=== PATIENT | female | born 1935 | race Caucasian/White ===

== ENCOUNTER 2018-04-03 14:10 | Inpatient (IN) | payer MEDICARE, OTHER ==
[~2018-04-03] VITALS: Ht 167.6 cm; Wt 81.8 kg
[~2018-04-03 14:10] MED LIST: ATOR10TA87 PO; DOCU-261 PO; ESOM40CA PO; HYDR12.522 PO; LEVO500T2 PO; LISI-222 PO; NORCO10T PO; OMEG1CAP54 PO; RIVA10TA PO; SYN0.1T PO; WALKERFR
[2018-04-03 14:53] LABS: BASOPHILS % (AUTO) 0.5 % (0-1); EOSINOPHILS # (AUTO) 0.1 X10'3 (0-0.9); EOSINOPHILS % (AUTO) 2.3 % (0-6); HEMATOCRIT 31.2 % (35.0-45.0); HEMOGLOBIN 10.5 g/dl (12.0-16.0); LYMPHOCYTES # (AUTO) 0.5 X10'3 (1.1-4.8); LYMPHOCYTES % (AUTO) 8.4 % (21-51); MEAN CORPUSCULAR HEMOGLOBIN 30.5 PG (27.0-31.0); MEAN CORPUSCULAR HGB CONC 33.5 % (33.0-36.5); MEAN PLATELET VOLUME 7.9 FL (7.4-10.4); MONOCYTES # (AUTO) 0.3 X10'3 (0-0.9); MONOCYTES % (AUTO) 4.9 % (2-12); NEUTROPHILS # (AUTO) 5.5 X10'3 (1.8-7.7); NEUTROPHILS % (AUTO) 83.9 % (42-75); PLATELET COUNT 165 X10'3 (140-440); RED BLOOD COUNT 3.43 X10'6 (4.20-5.60); RED CELL DISTRIBUTION WIDTH 12.8 % (11.5-14.5); WHITE BLOOD COUNT 6.4 X10'3 (4.5-11.0)
[2018-04-03] MEDS ORDERED: ondansetron 4mg/5ml UD cup PO ONE (15:05)
[2018-04-03 15:08] LABS: PROTHROMBIN TIME 11.1 SECONDS (9.0-12.0)
[2018-04-03 15:09] LABS: INR 1.1 INR; PARTIAL THROMBOPLASTIN TIME 27 SECONDS (22-32)
[2018-04-03 15:15] LABS: ALANINE AMINOTRANSFERASE 394 U/L (12-78); ALBUMIN 2.8 G/DL (3.4-5.0); ALKALINE PHOSPHATASE 162 IU/L (46-116); ANION GAP 13 (8-16); ASPARTATE AMINO TRANSFERASE 374 U/L (10-37); BILIRUBIN,TOTAL 4.6 MG/DL (0.1-1.0); BLOOD UREA NITROGEN 22 MG/DL (7-18); BUN/CREATININE RATIO 18.2 (6.6-38.0); CALCIUM 8.5 MG/DL (8.5-10.1); CHLORIDE 102 MMOL/L (99-107); CREATININE 1.21 MG/DL (0.40-0.90); GLUCOSE 141 MG/DL (70-104); POTASSIUM 3.4 MMOL/L (3.5-5.1); SODIUM 137 MMOL/L (135-145); TOTAL CARBON DIOXIDE 22.4 MMOL/L (24-32); eGFR 42 ML/MIN
[2018-04-03 15:25] LABS: ALBUMIN/GLOBULIN RATIO 0.8 (1.1-1.5); TOTAL PROTEIN 6.2 G/DL (6.4-8.2)
[2018-04-03] MEDS ORDERED: normal saline 1000ML IV soln IVB ONE (15:40)
[2018-04-03 16:39] LABS: CLARITY,URINE CLEAR (Clear); COLOR,URINE YELLOW (Yellow); GLUCOSE, URINE NEGATIVE (Neg); KETONES,URINE TRACE mg/dl (Neg); LEUKOCYTE ESTERASE ,URINE NEGATIVE (Neg); NITRITES, URINE NEGATIVE (Neg); OCCULT BLOOD,URINE TRACE-INTACT (Neg); PROTEIN,URINE TRACE mg/dl (Neg)
[2018-04-03 16:41] LABS: UA COLLECTION TYPE STRAIGHT CATH
[2018-04-03 16:51] LABS: BACTERIA,URINE NONE SEEN /HPF (Neg); MUCUS STRANDS FEW /LPF (Neg); RBC,URINE 0-2 /HPF (0-2); SQUAMOUS EPITHELIAL CELL,UR FEW /LPF (FEW); WBC,URINE 0-4 /HPF (0-4)
[2018-04-03 17:00] LABS: ETHANOL < 0.010 GM/DL (0.0-0.010); MAGNESIUM 1.9 MG/DL (1.5-2.4)
[2018-04-03] MEDS ORDERED: piperacillin/tazo 3.375gm/50ml 50 ML IV ONE (17:25)
[2018-04-03] MEDS ORDERED: normal saline 1000ML IV soln IV ONE (17:30)
[2018-04-03] MEDS: diatr meglu/diatrizoate 30ml oral sol.-(3 dose) bottle PO SCH ×2 (17:30→18:00)
[2018-04-03 17:47] LABS: LIPASE > 30000 U/L (73-393)
[2018-04-03 17:53] LABS: AMYLASE 2229 U/L (25-115)
[2018-04-03] MEDS ORDERED: iohexol 300mg/ml 100ml inj. ONE (18:00)
[2018-04-03] MEDS ORDERED: meperidine/PF 25mg/ml syringe IV ONE (18:25)
[2018-04-03] MEDS: normal saline 1000ml 1,000 ML IV SCH (20:32)
[2018-04-03] MEDS ORDERED: magnesium hydroxide 30ml (MOM) UD suspension PO PRN (20:35)
[2018-04-03] MEDS ORDERED: mag hydrox/Alum hydrox/simeth 30ml oral suspension PO PRN (20:35)
[2018-04-03] MEDS ORDERED: ondansetron/PF 4mg/2ml inj IV PRN (20:35)
[2018-04-03] MEDS ORDERED: acetaminophen 325mg tablet PO PRN ×2 (20:35)
[2018-04-03] MEDS ORDERED: HYDROcodone/acetaminophen 5mg/325mg tablet PO PRN (20:35)
[2018-04-03] MEDS ORDERED: potassium Cl 20 mEq SR tablet PO PRN ×2 (20:35)
[2018-04-03] MEDS ORDERED: morphine 4 MG/ML inj SYRINge IV PRN ×2 (20:35)
[2018-04-03] MEDS ORDERED: potassium Cl 40MEQ/NS 500ml 500 ML IV PRN ×2 (20:35)
[2018-04-03] MEDS ORDERED: SYN0.088T PO (20:44)
[2018-04-03] MEDS ORDERED: PANT40TA4 PO (20:44)
[2018-04-03] MEDS ORDERED: ASPI-611 PO (20:44)
[2018-04-03] MEDS ORDERED: temazepam 15mg capsule PO PRN (21:00)
[2018-04-04] MEDS: K and/or MAG REPLACEMENT MC SCH (08:00)
[2018-04-04] MEDS ORDERED: MIDAZolam 5mg/5ml vial ONE (08:09)
[2018-04-04] MEDS ORDERED: fentaNYL/PF 50MCG/1 ML 2ML syringe ONE (08:09)
[2018-04-04] MEDS ORDERED: glucagon, human recombinant 1mg kit ONE ×2 (08:10)
[2018-04-04] MEDS ORDERED: LIDOcaine Viscous 15ml cup ONE (08:10)
[2018-04-04] MEDS ORDERED: iohexol 300 MG/1 ML 50ml polymer ONE (08:10)
[2018-04-04] MEDS ORDERED: diphenhydrAMINE 50 mg/ml inj ONE (08:10)
[2018-04-04 08:29] LABS: BASOPHILS % (AUTO) 0.3 % (0-1); EOSINOPHILS # (AUTO) 0.1 X10'3 (0-0.9); EOSINOPHILS % (AUTO) 0.9 % (0-6); HEMATOCRIT 27.4 % (35.0-45.0); HEMOGLOBIN 9.3 g/dl (12.0-16.0); LYMPHOCYTES # (AUTO) 0.9 X10'3 (1.1-4.8); LYMPHOCYTES % (AUTO) 9.4 % (21-51); MEAN CORPUSCULAR HEMOGLOBIN 31.2 PG (27.0-31.0); MEAN CORPUSCULAR VOLUME 91.7 FL (78-98); MONOCYTES # (AUTO) 0.8 X10'3 (0-0.9); MONOCYTES % (AUTO) 8.7 % (2-12); NEUTROPHILS # (AUTO) 7.9 X10'3 (1.8-7.7); NEUTROPHILS % (AUTO) 80.7 % (42-75); PLATELET COUNT 143 X10'3 (140-440); RED BLOOD COUNT 2.98 X10'6 (4.20-5.60); RED CELL DISTRIBUTION WIDTH 12.8 % (11.5-14.5); WHITE BLOOD COUNT 9.7 X10'3 (4.5-11.0)
[2018-04-04 08:33] LABS: ALANINE AMINOTRANSFERASE 296 U/L (12-78); ALBUMIN 2.2 G/DL (3.4-5.0); ALKALINE PHOSPHATASE 127 IU/L (46-116); ANION GAP 10 (8-16); ASPARTATE AMINO TRANSFERASE 267 U/L (10-37); BILIRUBIN,TOTAL 5.1 MG/DL (0.1-1.0); BLOOD UREA NITROGEN 18 MG/DL (7-18); BUN/CREATININE RATIO 15.7 (6.6-38.0); CALCIUM 7.5 MG/DL (8.5-10.1); CHLORIDE 108 MMOL/L (99-107); CREATININE 1.15 MG/DL (0.40-0.90); GLUCOSE 92 MG/DL (70-104); HDL CHOLESTEROL 23 MG/DL (35-60); LDL CHOLESTEROL 38 MG/DL (50-100); POTASSIUM 3.3 MMOL/L (3.5-5.1); SODIUM 140 MMOL/L (135-145); TOTAL CARBON DIOXIDE 21.6 MMOL/L (24-32); eGFR 45 ML/MIN
[2018-04-04 08:34] LABS: ALBUMIN/GLOBULIN RATIO 0.7 (1.1-1.5); CHOL/HDL RATIO 2.7 (0.00-4.99); CHOLESTEROL 61 MG/DL (0-200); TOTAL PROTEIN 5.2 G/DL (6.4-8.2); TRIGLYCERIDES 48 MG/DL (20-135)
[2018-04-04 08:40] VITALS: BP 139/63
[2018-04-04] MEDS: piperacillin/tazo 4.5gm/100ml 100 ML IV SCH ×4 (08:41→23:58)
[2018-04-04 10:08] LABS: LIPASE 14644 U/L (73-393)
[2018-04-04] MEDS: normal saline 1000ml 1,000 ML IV SCH ×3 (13:47→21:38)
--- NOTE | 2018-04-04 13:58 | NUR ---
called lab and had them add on a Mag level from the bloodwork this AM
[2018-04-04 18:00] VITALS: BP 159/68
--- NOTE | 2018-04-04 20:00 | NUR ---
Patient in room PCU 3017. I have received report from Natasha Palmer in the Er and had the opportunity to ask questions and will assume patient care upon arrival to the floor. Addendum: 04/04/18 at 2113 by Felecia Marrero RN Amended: Links added.
[2018-04-04 21:00] VITALS: BP 159/68
--- NOTE | 2018-04-04 21:00 | NUR ---
pt arrived to the floor and transferred into bed. tolerated well. vitals done and stable. denies complaints of pain.
[2018-04-04 22:30] VITALS: BP 169/77
--- NOTE | 2018-04-04 22:57 | NUR ---
pt resting eyes closed without s&s of distress at this time.
--- NOTE | 2018-04-04 23:25 | NUR ---
awoke up with assistance ambulate to brp with walker
--- NOTE | 2018-04-05 00:48 | NUR ---
awake no changes or s&s of distress.
[2018-04-05 02:00] VITALS: BP 165/67
--- NOTE | 2018-04-05 02:15 | NUR ---
gi lab up to put up order for lipase draw this Am and to check on pt.
--- NOTE | 2018-04-05 04:00 | NUR ---
resting eyes closed without s&s of distress at this time.
[2018-04-05 06:00] VITALS: BP 144/67
--- NOTE | 2018-04-05 06:37 | NUR ---
Problems reprioritized. Patient report given, questions answered & plan of care reviewed with Sally Torres. Addendum: 04/05/18 at 0637 by Felecia Marrero RN Amended: Links added.
[2018-04-05 06:58] LABS: BASOPHILS % (AUTO) 0.6 % (0-1); EOSINOPHILS # (AUTO) 0.2 X10'3 (0-0.9); EOSINOPHILS % (AUTO) 2.5 % (0-6); HEMATOCRIT 28.6 % (35.0-45.0); HEMOGLOBIN 9.5 g/dl (12.0-16.0); LYMPHOCYTES % (AUTO) 14.1 % (21-51); MEAN CORPUSCULAR HEMOGLOBIN 30.4 PG (27.0-31.0); MEAN CORPUSCULAR HGB CONC 33.2 % (33.0-36.5); MEAN CORPUSCULAR VOLUME 91.7 FL (78-98); MEAN PLATELET VOLUME 8.4 FL (7.4-10.4); MONOCYTES # (AUTO) 0.6 X10'3 (0-0.9); MONOCYTES % (AUTO) 8.5 % (2-12); NEUTROPHILS # (AUTO) 5.2 X10'3 (1.8-7.7); NEUTROPHILS % (AUTO) 74.3 % (42-75); PLATELET COUNT 146 X10'3 (140-440); RED BLOOD COUNT 3.12 X10'6 (4.20-5.60); RED CELL DISTRIBUTION WIDTH 12.9 % (11.5-14.5)
[2018-04-05 07:10] LABS: ALANINE AMINOTRANSFERASE 250 U/L (12-78); ALBUMIN 2.3 G/DL (3.4-5.0); ALBUMIN/GLOBULIN RATIO 0.7 (1.1-1.5); ALKALINE PHOSPHATASE 124 IU/L (46-116); ANION GAP 12 (8-16); ASPARTATE AMINO TRANSFERASE 180 U/L (10-37); BILIRUBIN,TOTAL 2.8 MG/DL (0.1-1.0); BLOOD UREA NITROGEN 14 MG/DL (7-18); BUN/CREATININE RATIO 12.7 (6.6-38.0); CALCIUM 7.9 MG/DL (8.5-10.1); CHLORIDE 108 MMOL/L (99-107); GLUCOSE 76 MG/DL (70-104); POTASSIUM 3.5 MMOL/L (3.5-5.1); SODIUM 139 MMOL/L (135-145); TOTAL CARBON DIOXIDE 18.6 MMOL/L (24-32); TOTAL PROTEIN 5.5 G/DL (6.4-8.2); eGFR 47 ML/MIN
[2018-04-05 07:31] LABS: LIPASE 22287 U/L (73-393)
[2018-04-05] MEDS: piperacillin/tazo 4.5gm/100ml 100 ML IV SCH ×3 (07:35→23:12)
[2018-04-05] MEDS: K and/or MAG REPLACEMENT MC SCH (08:00)
[2018-04-05] MEDS: normal saline 1000ml 1,000 ML IV SCH (10:06)
[2018-04-05 11:00] VITALS: BP 169/63
[2018-04-05] MEDS: Potassium Cl inj 20 MEQ in dextrose 5%-water 990 ML IV SCH ×2 (14:39→23:16)
[2018-04-05 15:00] VITALS: BP 178/75
--- NOTE | 2018-04-05 15:43 | NUR ---
Consult re: pancreatitis. Per MD notes pt with gallstone pancreatitis pending MRCP and potential cholecystectomy once pancreas less inflamed. Pt seen at bedside given written and verbal pancreatitis nutrition therapy ed with RD contact information. Pt with no questions at this time, will remain available. Darlene consult: Pt seen at bedside states she hasn't had any wt loss that shes concerned about. Pt states UBW 170# which is current documented wt. 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 No visible fat/muscle wasting noted during RD visit. No documented decrease in muscle strength. Pt currently does not meet criteria for malnutrition. Will continue to follow. Addendum: 04/05/18 at [address] Amended: Links added.
--- NOTE | 2018-04-05 15:59 | NUR ---
Spoke with about patient elevated blood pressure. The decision was to monitor the blood pressure for now due to the patient condition. Patient is asymptomatic.
[2018-04-05 18:00] VITALS: BP 169/64
--- NOTE | 2018-04-05 18:17 | NUR ---
Problems reprioritized. Patient report given, questions answered & plan of care reviewed with Namrata FLORES.
--- NOTE | 2018-04-05 18:35 | NUR ---
Patient in room PCU 3017. I have received report from Sally FLORES and had the opportunity to ask questions and assume patient care.
[2018-04-05 22:00] VITALS: BP 165/104
[2018-04-06] VITALS (14 sets, daily range): BP systolic 128–177; BP diastolic 53–82
[2018-04-06] MEDS: Potassium Cl inj 20 MEQ in dextrose 5%-water 990 ML IV SCH ×2 (04:59→21:04)
[2018-04-06 06:07] LABS: BASOPHILS # (AUTO) 0.1 X10'3 (0-0.2); BASOPHILS % (AUTO) 0.9 % (0-1); EOSINOPHILS # (AUTO) 0.2 X10'3 (0-0.9); EOSINOPHILS % (AUTO) 3.5 % (0-6); HEMATOCRIT 29.7 % (35.0-45.0); HEMOGLOBIN 9.9 g/dl (12.0-16.0); LYMPHOCYTES # (AUTO) 1.5 X10'3 (1.1-4.8); MEAN CORPUSCULAR HEMOGLOBIN 30.5 PG (27.0-31.0); MEAN CORPUSCULAR HGB CONC 33.5 % (33.0-36.5); MEAN CORPUSCULAR VOLUME 91.1 FL (78-98); MEAN PLATELET VOLUME 8.3 FL (7.4-10.4); MONOCYTES # (AUTO) 0.6 X10'3 (0-0.9); MONOCYTES % (AUTO) 8.8 % (2-12); NEUTROPHILS # (AUTO) 4.5 X10'3 (1.8-7.7); NEUTROPHILS % (AUTO) 65.8 % (42-75); PLATELET COUNT 180 X10'3 (140-440); RED BLOOD COUNT 3.26 X10'6 (4.20-5.60); RED CELL DISTRIBUTION WIDTH 12.6 % (11.5-14.5); WHITE BLOOD COUNT 6.9 X10'3 (4.5-11.0)
[2018-04-06 06:12] LABS: ALANINE AMINOTRANSFERASE 207 U/L (12-78); ALBUMIN 2.3 G/DL (3.4-5.0); ALBUMIN/GLOBULIN RATIO 0.6 (1.1-1.5); ALKALINE PHOSPHATASE 120 IU/L (46-116); ANION GAP 10 (8-16); ASPARTATE AMINO TRANSFERASE 110 U/L (10-37); BILIRUBIN,TOTAL 1.9 MG/DL (0.1-1.0); BLOOD UREA NITROGEN 8 MG/DL (7-18); BUN/CREATININE RATIO 6.8 (6.6-38.0); CALCIUM 8.3 MG/DL (8.5-10.1); CHLORIDE 107 MMOL/L (99-107); CREATININE 1.18 MG/DL (0.40-0.90); GLUCOSE 94 MG/DL (70-104); POTASSIUM 3.4 MMOL/L (3.5-5.1); SODIUM 139 MMOL/L (135-145); TOTAL CARBON DIOXIDE 22.3 MMOL/L (24-32); TOTAL PROTEIN 5.9 G/DL (6.4-8.2); eGFR 44 ML/MIN
--- NOTE | 2018-04-06 06:30 | NUR ---
Problems reprioritized. Patient report given, questions answered & plan of care reviewed with Regla FLORES.
--- NOTE | 2018-04-06 06:44 | NUR ---
Patient in room PCU 3017. I have received report from Namrata FLORES and had the opportunity to ask questions and assume patient care.
[2018-04-06] MEDS: piperacillin/tazo 4.5gm/100ml 100 ML IV SCH (07:12)
[2018-04-06] MEDS: levoTHYROXINE 88mcg tablet PO SCH (07:12)
[2018-04-06] MEDS: docusate sod 100mg capsule PO SCH (07:12)
[2018-04-06] MEDS: aspirin 81mg tablet.DR PO SCH (07:12)
[2018-04-06] MEDS ORDERED: non-formulary drug (Aspirin (Aspir 81) 1 TAB) PO SCH (08:00)
[2018-04-06] MEDS ORDERED: pantoprazole 40mg Tablet.DR PO SCH (08:00)
[2018-04-06] MEDS: K and/or MAG REPLACEMENT MC SCH (08:25)
--- NOTE | 2018-04-06 10:09 | NUR ---
Order from Dr. Sandra to give K 40meq PO NOW to replace 3.4 K level today. Patient will be NPO for ERCP. Dr. Coelho will consult for surgery.
[2018-04-06 10:47] LABS: LIPASE 13436 U/L (73-393)
[2018-04-06] MEDS ORDERED: simethicone 40mg/0.6ml oral drops 30ml MC ONE (13:50)
[2018-04-06] MEDS ORDERED: glucagon, human recombinant 1mg kit IV PRN (13:50)
[2018-04-06] MEDS ORDERED: MIDAZolam 5mg/5ml vial IV PRN (13:50)
[2018-04-06] MEDS ORDERED: normal saline 1000ml 1,000 ML IV SCH (13:50)
[2018-04-06] MEDS ORDERED: iohexol 300 MG/1 ML 50ml polymer IV ONE (13:50)
[2018-04-06] MEDS ORDERED: diphenhydrAMINE 50 mg/ml inj IV ONE (13:50)
[2018-04-06] MEDS ORDERED: LIDOcaine Viscous 15ml cup PO ONE (13:50)
[2018-04-06] MEDS ORDERED: fentaNYL/PF 50MCG/1 ML 2ML syringe IV PRN (13:50)
[2018-04-06] MEDS: piperacillin/tazobactam inj. 2.25 GM in normal saline 50ml IV IV SCH ×2 (14:42→21:04)
[2018-04-06] MEDS ORDERED: epiNEPHrine 0.1mg/ml 10ml syringe ONE (16:09)
[2018-04-06] MEDS ORDERED: MIDAZolam 5mg/5ml vial ONE ×2 (16:15→16:17)
[2018-04-06] MEDS ORDERED: diphenhydrAMINE 50 mg/ml inj ONE (16:15)
[2018-04-06] MEDS ORDERED: fentaNYL/PF 50MCG/1 ML 2ML syringe ONE ×2 (16:15)
[2018-04-06] MEDS ORDERED: glucagon, human recombinant 1mg kit ONE ×2 (16:16)
[2018-04-06] MEDS ORDERED: LIDOcaine Viscous 15ml cup ONE (16:16)
[2018-04-06] MEDS ORDERED: iohexol 300 MG/1 ML 50ml polymer ONE (16:16)
--- NOTE | 2018-04-06 16:20 | NUR ---
Patient off the unit to the GI Lab for ERCP, no IV, unable to obtain one.
[2018-04-06] MEDS: lactobacillus rhamnosus 10,000 MMU CELLS/CAPSULE PO SCH (21:04)
[2018-04-06] MEDS: pantoprazole 40 MG vial IV SCH (21:04)
[2018-04-07] VITALS (20 sets, daily range): BP systolic 109–188; BP diastolic 51–90
[2018-04-07] MEDS: piperacillin/tazobactam inj. 2.25 GM in normal saline 50ml IV IV SCH ×4 (02:00→20:08)
[2018-04-07] MEDS: Potassium Cl inj 20 MEQ in dextrose 5%-water 990 ML IV SCH ×3 (05:45→22:00)
[2018-04-07 06:03] LABS: BASOPHILS % (AUTO) 0.8 % (0-1); EOSINOPHILS # (AUTO) 0.2 X10'3 (0-0.9); EOSINOPHILS % (AUTO) 4.4 % (0-6); HEMATOCRIT 26.7 % (35.0-45.0); HEMOGLOBIN 9.1 g/dl (12.0-16.0); LYMPHOCYTES # (AUTO) 1.2 X10'3 (1.1-4.8); LYMPHOCYTES % (AUTO) 22.5 % (21-51); MEAN CORPUSCULAR HGB CONC 34.1 % (33.0-36.5); MEAN CORPUSCULAR VOLUME 90.9 FL (78-98); MONOCYTES # (AUTO) 0.5 X10'3 (0-0.9); MONOCYTES % (AUTO) 9.9 % (2-12); NEUTROPHILS # (AUTO) 3.5 X10'3 (1.8-7.7); NEUTROPHILS % (AUTO) 62.4 % (42-75); PLATELET COUNT 169 X10'3 (140-440); RED BLOOD COUNT 2.94 X10'6 (4.20-5.60); RED CELL DISTRIBUTION WIDTH 12.5 % (11.5-14.5); WHITE BLOOD COUNT 5.4 X10'3 (4.5-11.0)
--- NOTE | 2018-04-07 06:15 | NUR ---
Patient in room PCU 3017. I have received report from Jas FLORES and had the opportunity to ask questions and assume patient care.
[2018-04-07 06:20] LABS: ALANINE AMINOTRANSFERASE 144 U/L (12-78); ALBUMIN/GLOBULIN RATIO 0.6 (1.1-1.5); ALKALINE PHOSPHATASE 99 IU/L (46-116); ANION GAP 9 (8-16); ASPARTATE AMINO TRANSFERASE 70 U/L (10-37); BILIRUBIN,TOTAL 1.5 MG/DL (0.1-1.0); BLOOD UREA NITROGEN 6 MG/DL (7-18); CALCIUM 8.1 MG/DL (8.5-10.1); CHLORIDE 108 MMOL/L (99-107); GLUCOSE 109 MG/DL (70-104); POTASSIUM 4.1 MMOL/L (3.5-5.1); SODIUM 139 MMOL/L (135-145); TOTAL CARBON DIOXIDE 21.8 MMOL/L (24-32); TOTAL PROTEIN 5.2 G/DL (6.4-8.2); eGFR 53 ML/MIN
--- NOTE | 2018-04-07 06:37 | NUR ---
Problems reprioritized. Patient report given, questions answered & plan of care reviewed with ZENIA. Addendum: 04/07/18 at 0637 by Mayur Coleman RN Amended: Links added.
[2018-04-07] MEDS: K and/or MAG REPLACEMENT MC SCH (08:00)
[2018-04-07] MEDS: docusate sod 100mg capsule PO SCH (08:58)
[2018-04-07] MEDS: levoTHYROXINE 88mcg tablet PO SCH (08:58)
[2018-04-07] MEDS: lactobacillus rhamnosus 10,000 MMU CELLS/CAPSULE PO SCH ×2 (08:58→20:08)
[2018-04-07] MEDS: pantoprazole 40 MG vial IV SCH ×2 (08:59→20:08)
[2018-04-07] MEDS: aspirin 81mg tablet.DR PO SCH (08:59)
[2018-04-07] MEDS ORDERED: BUPIVAcaine/PF 2.5mg/ml (0.25%) 10ml vial ONE (14:26)
[2018-04-07] MEDS ORDERED: LIDOcaine 1% 30ml preserv. free vial ONE (14:26)
[2018-04-07] MEDS ORDERED: sevoflurane 250ml liquid IH ONE (15:18)
[2018-04-07] MEDS ORDERED: rocuronium 10mg/ml inj IV ONE (15:27)
[2018-04-07] MEDS ORDERED: fentaNYL/PF 50MCG/1 ML 2ML syringe ONE (15:27)
[2018-04-07] MEDS ORDERED: propofol inj 20 ML IV ONE (15:27)
--- NOTE | 2018-04-07 16:03 | NUR ---
Problems reprioritized. Patient report given, questions answered & plan of care reviewed with Vero FLORES.
--- NOTE | 2018-04-07 16:06 | NUR ---
Patient in room PCU 3017. I have received report from Vipin FLORES and had the opportunity to ask questions and assume patient care.
[2018-04-07] MEDS ORDERED: glycopyrrolate 0.2mg/ml inj ONE (16:34)
[2018-04-07] MEDS ORDERED: neostigmine methylsulfate 1 MG/ML 10ml vial ONE (16:34)
[2018-04-07] MEDS ORDERED: HYDROcodone/acetaminophen 5mg/325mg tablet PO PRN (16:45)
[2018-04-07] MEDS ORDERED: morphine 2 MG/ML inj. syringe IV PRN (16:45)
--- NOTE | 2018-04-07 16:50 | NUR ---
Received from OR via BED, accompanied by Anesthesiologist DR SANTANA and report given by Anesthesiolgist. PT DROWSY, DENIES PAIN, 4 LAP SITES W/BANDAIDS TO ABDOMEN CDI. Addendum: 04/07/18 at 1705 by Leyla Ingram RN Amended: Links added.
[2018-04-07] MEDS ORDERED: ringers solution, lacted 1,000 ML IV SCH (17:03)
[2018-04-07] MEDS ORDERED: ondansetron/PF 4mg/2ml inj IV PRN (17:05)
[2018-04-07] MEDS ORDERED: meperidine/PF 25mg/ml syringe IV PRN ×3 (17:05)
[2018-04-07] MEDS ORDERED: labetalol 20mg/4ml (5mg/ml) syringe IV PRN (17:05)
[2018-04-07] MEDS ORDERED: morphine 4 MG/ML inj SYRINge IV PRN ×3 (17:05→19:50)
[2018-04-07] MEDS ORDERED: proCHLORperazine 10 MG/2 ml inj IV PRN (17:05)
--- NOTE | 2018-04-07 17:56 | NUR ---
Received report from Leyla . patient is still in the recovery room at time of report.
--- NOTE | 2018-04-07 18:00 | NUR ---
Report called to receiving nurse. Transferred via BED, NO Belongings, PT SLEEPY BUT ANSWERS QUESTIONS APPROPRIATELY, PAIN IMPROVED, NAUSEA SUBSIDED, PT STABLE TO ROOM 345B, RECEIVING RN AT BEDSIDE TO RECEIVE PT, PT ATTACHED TO VS MACHINE, BLL, CALL LIGHT GIVEN, SIDE RAILS UP X2, PTS AT BEDSIDE. Special Issues communicated to receiving nurse. YES. Addendum: 04/07/18 at 1823 by Leyla Ingram RN Amended: Links added.
--- NOTE | 2018-04-07 18:25 | NUR ---
Problems reprioritized. Patient report given, questions answered & plan of care reviewed with jaron mcclelland.
[2018-04-08] VITALS: BP 143/75
[2018-04-08 00:42] VITALS: BP 144/65
[2018-04-08] MEDS: Potassium Cl inj 20 MEQ in dextrose 5%-water 990 ML IV SCH ×2 (01:25→10:53)
[2018-04-08] MEDS: piperacillin/tazobactam inj. 2.25 GM in normal saline 50ml IV IV SCH ×4 (02:13→20:44)
[2018-04-08 05:07] LABS: BASOPHILS % (AUTO) 0.3 % (0-1); EOSINOPHILS # (AUTO) 0.2 X10'3 (0-0.9); EOSINOPHILS % (AUTO) 1.7 % (0-6); HEMATOCRIT 23.9 % (35.0-45.0); HEMOGLOBIN 8.1 g/dl (12.0-16.0); LYMPHOCYTES # (AUTO) 0.7 X10'3 (1.1-4.8); LYMPHOCYTES % (AUTO) 7.4 % (21-51); MEAN CORPUSCULAR HEMOGLOBIN 30.6 PG (27.0-31.0); MEAN CORPUSCULAR VOLUME 90.1 FL (78-98); MEAN PLATELET VOLUME 7.4 FL (7.4-10.4); MONOCYTES # (AUTO) 0.5 X10'3 (0-0.9); MONOCYTES % (AUTO) 5.6 % (2-12); NEUTROPHILS # (AUTO) 7.9 X10'3 (1.8-7.7); PLATELET COUNT 185 X10'3 (140-440); RED BLOOD COUNT 2.65 X10'6 (4.20-5.60); RED CELL DISTRIBUTION WIDTH 13.6 % (11.5-14.5); WHITE BLOOD COUNT 9.3 X10'3 (4.5-11.0)
[2018-04-08 05:36] LABS: ALANINE AMINOTRANSFERASE 123 U/L (12-78); ALBUMIN 1.9 G/DL (3.4-5.0); ALBUMIN/GLOBULIN RATIO 0.6 (1.1-1.5); ALKALINE PHOSPHATASE 85 IU/L (46-116); ANION GAP 6 (8-16); ASPARTATE AMINO TRANSFERASE 68 U/L (10-37); BILIRUBIN,TOTAL 1.4 MG/DL (0.1-1.0); BLOOD UREA NITROGEN 6 MG/DL (7-18); BUN/CREATININE RATIO 5.8 (6.6-38.0); CALCIUM 7.6 MG/DL (8.5-10.1); CHLORIDE 103 MMOL/L (99-107); CREATININE 1.03 MG/DL (0.40-0.90); GLUCOSE 152 MG/DL (70-104); POTASSIUM 4.6 MMOL/L (3.5-5.1); SODIUM 133 MMOL/L (135-145); TOTAL CARBON DIOXIDE 24.3 MMOL/L (24-32); TOTAL PROTEIN 4.9 G/DL (6.4-8.2); eGFR 51 ML/MIN
--- NOTE | 2018-04-08 06:26 | NUR ---
Patient in room [facility] 345. I have received report from OMAR mcclelland and had the opportunity to ask questions and assume patient care.
--- NOTE | 2018-04-08 06:26 | NUR ---
Problems reprioritized. Patient report given, questions answered & plan of care reviewed with SHANICE. Addendum: 04/08/18 at 0626 by Mayur Coleman RN Amended: Links added.
[2018-04-08 07:26] VITALS: BP 141/60
[2018-04-08] MEDS: lactobacillus rhamnosus 10,000 MMU CELLS/CAPSULE PO SCH ×2 (07:35→20:44)
[2018-04-08] MEDS: pantoprazole 40 MG vial IV SCH ×2 (07:35→20:44)
[2018-04-08] MEDS: aspirin 81mg tablet.DR PO SCH (07:35)
[2018-04-08] MEDS: docusate sod 100mg capsule PO SCH (07:36)
[2018-04-08] MEDS: levoTHYROXINE 88mcg tablet PO SCH (07:36)
[2018-04-08] MEDS: K and/or MAG REPLACEMENT MC SCH (07:47)
[2018-04-08] MEDS: HYDROcodone/acetaminophen 10/325mg tab PO PRN ×2 (10:57→17:49)
[2018-04-08 11:00] VITALS: BP 133/76
--- NOTE | 2018-04-08 11:30 | NUR ---
patient was found by RN Jayce down on the floor. patient had put light on but tried to get back to her bed by herself. VSS. Two slight reddened area on back patient had been c/o pain in right shoulder which now she states is worse. call made to DR reyes with regards patient awaiting call back.
--- NOTE | 2018-04-08 13:41 | NUR ---
patient seen by DR Londono xray of right shoulder ordered and PT eval. will continue to monitor.
--- NOTE | 2018-04-08 13:51 | NUR ---
Initial: Pt admit with acute cholecystitis, gallstone pancreatitis, and choledocholithiasis. Pt now s/p laparoscopic cholecystectomy. Diet has been advanced to full liquid with good PO intake first meal. LBM 04/02, routine Colace recently added to med list. Will continue to follow and monitor need for ONS and additional bowel care. Recommendations: 1) Advance to heart healthy diet as medically indicated 2) Monitor need for ONS 3) Monitor need for additional bowel care 4) Wt per rx Addendum: 04/08/18 at [address] Amended: Links added.
--- NOTE | 2018-04-08 17:33 | NUR ---
patient appears more weak needed assistance of two people to get back to bed, will continue to monitor. VSS
[2018-04-08 18:00] VITALS: BP 111/47
--- NOTE | 2018-04-08 18:30 | NUR ---
Patient in room [facility] 345. I have received report from Vero FLORES and had the opportunity to ask questions and assume patient care.
--- NOTE | 2018-04-08 18:39 | NUR ---
Problems reprioritized. Patient report given, questions answered & plan of care reviewed with jude FLORES.
--- NOTE | 2018-04-08 18:48 | NUR ---
Problems reprioritized. Patient report given, questions answered & plan of care reviewed with jude FLORES.
--- NOTE | 2018-04-08 20:00 | NUR ---
spoke with dr rodriguez says it is okay with him if patient is discharged today if okay with hospitalist.
[2018-04-09] VITALS: BP 155/69
--- NOTE | 2018-04-09 06:10 | NUR ---
Patient in room [facility] 345. I have received report from Namrata FLORES and had the opportunity to ask questions and assume patient care. Patient in bed sleeping on her back. Tabs alarm connected
--- NOTE | 2018-04-09 06:24 | NUR ---
Problems reprioritized. Patient report given, questions answered & plan of care reviewed with Jackie FLORES.
[2018-04-09 07:30] VITALS: BP 159/74
[2018-04-09] MEDS: K and/or MAG REPLACEMENT MC SCH (08:00)
[2018-04-09] MEDS: lactobacillus rhamnosus 10,000 MMU CELLS/CAPSULE PO SCH ×2 (08:53→19:16)
[2018-04-09] MEDS: aspirin 81mg tablet.DR PO SCH (08:53)
[2018-04-09] MEDS: levoTHYROXINE 88mcg tablet PO SCH (08:53)
[2018-04-09] MEDS: docusate sod 100mg capsule PO SCH (08:53)
[2018-04-09 11:00] VITALS: BP 159/66
[2018-04-09 11:15] VITALS: BP 159/66
[2018-04-09 18:00] VITALS: BP 158/68
--- NOTE | 2018-04-09 18:10 | NUR ---
Problems reprioritized. Patient report given, Namrata FLORES questions answered & plan of care reviewed with . Patient in bed, tabs alarm on
--- NOTE | 2018-04-09 18:30 | NUR ---
Patient in room [facility] 345. I have received report from Jackie FLORES and had the opportunity to ask questions and assume patient care. Pt sitting up eating dinner, comfortable and in no distress.
[2018-04-10] VITALS: BP 158/73
--- NOTE | 2018-04-10 06:07 | NUR ---
Problems reprioritized. Patient report given, questions answered & plan of care reviewed with Macie FLORES.
--- NOTE | 2018-04-10 06:09 | NUR ---
Patient in room [facility] 345. I have received report from Namrata FLORES and had the opportunity to ask questions and assume patient care.
[2018-04-10 07:00] VITALS: BP 168/80
[2018-04-10] MEDS: K and/or MAG REPLACEMENT MC SCH (08:00)
[2018-04-10] MEDS: docusate sod 100mg capsule PO SCH (08:34)
[2018-04-10] MEDS: aspirin 81mg tablet.DR PO SCH (08:35)
[2018-04-10] MEDS: levoTHYROXINE 88mcg tablet PO SCH (08:35)
[2018-04-10] MEDS: lactobacillus rhamnosus 10,000 MMU CELLS/CAPSULE PO SCH (08:35)
[2018-04-10 12:00] VITALS: BP 163/76
--- NOTE | 2018-04-10 13:00 | NUR ---
Discharged patient home accompanied by her . Peripheral catheter discontinued, tip intact. Discharge instructions given to patient and her present at bedside. Spoke to the Medicare Specialist Ana, she stated that Dr. Gustafson (patient's PCP) cannot follow a patient on home health service. Belongings sent with the patient.
== END 2018-04-10 13:06 | disposition home health service (06) | DRG 417 ==
LOC: ER 14:11 → ED HOLD 20:32 → PCU 3S 04-04 20:33 → SUR 3N 04-07 17:59
PROVIDERS: ADMIT Hospitalist; ATTEND Internal Medicine
PROC: 0FC98ZZ Extirpation of Matter from Common Bile Duct, Via Natural or Artificial Opening Endoscopic (ICD-10-PCS; principal; 2018-04-06)
PROC: BF141ZZ Fluoroscopy of Gallbladder, Bile Ducts and Pancreatic Ducts using Low Osmolar Contrast (ICD-10-PCS; 2018-04-06)
PROC: 0FT44ZZ Resection of Gallbladder, Percutaneous Endoscopic Approach (ICD-10-PCS; 2018-04-07)
DX: K80.66 Calculus of gallbladder and bile duct with acute and chronic cholecystitis without obstruction (principal); I21.A1 Myocardial infarction type 2; K85.10 Biliary acute pancreatitis without necrosis or infection; E43 Unspecified severe protein-calorie malnutrition; N17.9 Acute kidney failure, unspecified; E87.1 Hypo-osmolality and hyponatremia; E87.6 Hypokalemia; G31.84 Mild cognitive impairment of uncertain or unknown etiology; E86.0 Dehydration; D64.9 Anemia, unspecified; E03.9 Hypothyroidism, unspecified; E78.00 Pure hypercholesterolemia, unspecified; E78.5 Hyperlipidemia, unspecified; I10 Essential (primary) hypertension; K21.9 Gastro-esophageal reflux disease without esophagitis; K76.0 Fatty (change of) liver, not elsewhere classified; Z96.653 Presence of artificial knee joint, bilateral; Z98.84 Bariatric surgery status; Z79.82 Long term (current) use of aspirin; Z68.29 Body mass index [BMI] 29.0-29.9, adult
CPT/HCPCS: 36415; 71045; 73020; 74176; 74181; 76700; 80053; 80061; 80320; 81001; 82150; 83605; 83690; 83735; 84145; 84443; 84484; 85025; 85610; 85730; 87040; 87070; 88304; 93005; 93306; 96365; 97110; 97116; 97162; 99152; 99153; 99291; A4620; A7000; C9113; G0378; J0171; J0780; J1200; J1610; J2175; J2250; J2270; J2405; J2543; J2704; J2710; J3010; J3480; J3490; J7030; J7070; J7120; Q9963; Q9967